=== PATIENT | female | born 2005 | race Caucasian/White ===

== ENCOUNTER 2023-06-14 10:14 | Outpatient (REF) | payer OTHER, SELFPAY ==
--- NOTE | ~2023-06-14 | MR_ITS ---
EXAMINATION: MR KNEE WITHOUT CONTRAST, RIGHT CLINICAL INFORMATION: Internal derangement right knee COMPARISON: None available. TECHNIQUE: MRI of the knee without contrast was performed using routine sequences on a high-field scanner. FINDINGS: MENISCI: Medial Meniscus: Intact Lateral Meniscus: Intact LIGAMENTS: Cruciate: Intact Collateral: Intact EXTENSOR MECHANISM: Intact ARTICULAR CARTILAGE/BONE: No significant cartilage loss. Joint spaces are maintained. No fracture. JOINT FLUID AND BURSAE: Small joint fluid. Small Méndez's cyst. Popliteus muscle and tendon are intact. MR/MR knee RT wo con IMPRESSION: 1. Menisci appear intact without evidence of discrete tear. 2. Cruciate and collateral ligaments appear intact. 3. Small Méndez's cyst.
== END 2023-06-14 10:15 | disposition home or self-care (01) ==
LOC: HO.MRI 10:14
PROVIDERS: Visit Provider Family Medicine Sports Medicine
DX: M23.91 Unspecified internal derangement of right knee (principal)
CPT/HCPCS: 73721